=== PATIENT | female | born 1935 | race Caucasian/White ===

== ENCOUNTER 2016-09-10 23:46 | Emergency (ER) | payer MEDICARE, BC ==
--- NOTE | 2016-09-10 23:58 | Emergency Department Record ---
History of Present Illness - General Stated Complaint: FALL Time Seen by Provider: 09/10/16 23:52 Source: Family - History of Present Illness Initial Comments: Fell on her way to the bathroom from the [facility] facility [facility]. She has had trouble with her left hip prosthesis and is scheduled to get the screws removed. Also has a large skin tear on the back of her left hand. She typically uses a walker, but doesn't know how the fall happened. MD Complaint: Fall - Related Data Home Medications Medication Instructions Recorded Confirmed Last Taken Aspirin [Aspirin EC] 81 mg PO DAILY 06/16/15 09/11/16 09/10/16 Atorvastatin Calcium [Lipitor] 20 mg PO QHS 06/16/15 09/11/16 09/10/16 Carvedilol [Coreg] 3.125 mg PO BID 06/16/15 09/11/16 09/10/16 Fluticasone/Salmeterol 100/50 1 disk IH Q12H 06/16/15 09/11/16 09/10/16 [Advair 100/50] Furosemide [Lasix] 20 mg PO BID 06/16/15 09/11/16 09/10/16 Isosorbide Mononitrate [Imdur] 30 mg PO DAILY 06/16/15 09/11/16 09/10/16 Metoprolol Succinate [Toprol Xl] 25 mg PO DAILY 06/16/15 09/11/16 06/16/15 Tiotropium [place] [Spiriva] 1 cap IH DAILY 06/16/15 09/11/16 06/16/15 Acetaminophen [Tylenol 325Mg] 325 mg PO Q4H PRN 09/11/16 09/11/16 Unknown Albuterol Sulfate 0.083% [Neb] 3 ml NEB Q6H PRN 09/11/16 09/11/16 Unknown Alprazolam [Xanax] 0.25 mg PO BID 09/11/16 09/11/16 09/10/16 Alprazolam [Xanax] 0.25 mg PO Q8H PRN 09/11/16 09/11/16 Unknown Hydralazine HCl [Apresoline] 25 mg PO BID 09/11/16 09/11/16 09/10/16 Hypromellose [Systane Gel] 10 gm OP QHS 09/11/16 09/11/16 Unknown Losartan Potassium [Cozaar] 25 mg PO DAILY 09/11/16 09/11/16 09/10/16 Melatonin 3 mg PO QHS 09/11/16 09/11/16 09/10/16 Mirtazapine [Remeron] 15 mg PO QHS 09/11/16 09/11/16 Unknown Nitroglycerin [Nitrostat] 0.4 mg SL Q5MIN PRN MDD 3 09/11/16 09/11/16 Unknown Pantoprazole Sodium [Protonix] 40 mg PO BID 09/11/16 09/11/16 Unknown Potassium Chloride [Klor-Con] 20 meq PO BID 09/11/16 09/11/16 Unknown Propylene Glycol [Systane Balance] 10 ml OP BID 09/11/16 09/11/16 Unknown Sennosides/Docusate Sodium [Senna 1 each PO BID 09/11/16 09/11/16 09/10/16 Plus] Teriparatide [Forteo] 2.4 ml SQ DAILY 09/11/16 09/11/16 09/10/16 Tramadol HCl 50 mg PO BID PRN 09/11/16 09/11/16 Unknown Previous Rx's Medication Instructions Recorded Ferrous Sulfate [Feosol] 325 mg PO DAILY #30 tab 06/16/15 Sulfamethoxazole/Trimethoprim 1 each PO BID #5 tablet 09/11/16 [Bactrim Ds Tablet] Allergies Allergy/AdvReac Type Severity Reaction Status Date / Time amlodipine besylate Allergy HIVES Verified 06/16/15 10:16 [From [facility]] Penicillins Allergy HIVES Verified 06/16/15 10:16 Review of Systems Reviewed: No additional complaints except as noted below Constitutional: Reports: As per HPI. Denies: Chills, Fever, Malaise, Night sweats, Weakness, Weight change Eyes: Reports: As per HPI. Denies: Eye discharge, Eye pain, Photophobia, Vision change ENT: Reports: As per HPI. Denies: Congestion, Dental pain, Ear pain, Epistaxis , Hearing loss, Throat pain Respiratory: Reports: As per HPI. Denies: Cough, Dyspnea, Hemoptysis, Stridor, Wheezes Cardiovascular: Reports: As per HPI. Denies: Arrhythmia, Chest pain, Dyspnea on exertion, Edema, Murmurs, Orthopnea, Palpitations, Paroxysmal nocturnal dyspnea, Rheumatic Fever, Syncope Endocrine: Reports: As per HPI. Denies: Fatigue, Heat or cold intolerance, Polydipsia, Polyuria Gastrointestinal: Reports: As per HPI. Denies: Abdominal pain, Constipation, Diarrhea, Hematemesis, Hematochezia, Melena, Nausea, Vomiting Genitourinary: Reports: As per HPI. Denies: Abnormal menses, Discharge, Dyspareunia, Dysuria, Frequency, Hematuria, Incontinence, Retention, Urgency Musculoskeletal: Reports: As per HPI. Denies: Arthralgia, Back pain, Gout, Joint swelling, Myalgia, Neck pain Skin: Reports: As per HPI. Denies: Bruising, Change in color, Change in hair/ nails, Lesions, Pruritus, Rash Neurological: Reports: As per HPI. Denies: Abnormal gait, Confusion, Headache, Numbness, Paresthesias, Seizure, Tingling, Tremors, Vertigo, Weakness Psychiatric: Reports: As per HPI. Denies: Anxiety, Auditory hallucinations, Depression, Homicidal thoughts, Suicidal thoughts, Visual hallucinations Hematological/Lymphatic: Reports: As per HPI. Denies: Anemia, Blood Clots, Easy bleeding, Easy bruising, Swollen glands Past Medical History - SOCIAL HISTORY Smoking Status: Former smoker - RESPIRATORY Hx Respiratory Disorders: Yes Hx Bronchitis: Yes - CARDIOVASCULAR Hx Cardio Disorders: Yes Hx Abnormal EKG: Yes Hx Chest Pain: Yes Hx CHF: Yes Hx Heart Attack: Yes Hx Hypertension: Yes Hx Irregular Heartbeat: Yes Comment:: hyperlipidemia - NEURO Hx Neuro Disorders: Yes Hx Dementia: Yes Hx Neuropathy: Yes Hx TIA: Yes Comment:: RLS - GI Hx GI Disorders: No - Hx Genitourinary Disorders: No - ENDOCRINE Hx Endocrine Disorders: Yes Hx Diabetes: Yes Hx Thyroid Disease: Yes - MUSCULOSKELETAL Hx Musculoskeletal Disorders: Yes Comment:: muscle weakness - PSYCH Hx Psych Problems: No - HEMATOLOGY/ONCOLOGY Hx Hematology/Oncology Disorders: No Family Medical History Family Hx Comment (NOT TO BE USED IN PLACE OF ITEMS BELOW): unknown, pt has dementia Physical Exam - General General Appearance: Alert, Cooperative, Mild distress - Head Head exam: Normal inspection Head exam detail: Contusion (contusion to upper forehead) - Eye Eye exam: Normal appearance, PERRL Pupils: Normal accommodation - ENT ENT exam: Normal exam, Mucous membranes moist, Normal external ear exam, Normal orophraynx, TM's normal bilaterally Ear exam: Normal external inspection. negative: External canal tenderness Nasal Exam: Normal inspection. negative: Discharge, Sinus tenderness Mouth exam: Normal external inspection, Tongue normal Teeth exam: Normal inspection. negative: Dental caries Throat exam: Normal inspection. negative: Tonsillar erythema, Tonsillar exudate - Neck Neck exam: Normal inspection, Full ROM. negative: Lymphadenopathy, Meningismus , Tenderness - Respiratory Respiratory exam: Normal lung sounds bilaterally. negative: Chest wall tenderness, Respiratory distress - Cardiovascular Cardiovascular Exam: Regular rate, Normal rhythm, Normal heart sounds - GI/Abdominal GI/Abdominal exam: Soft, Normal bowel sounds. negative: Tenderness - Rectal Rectal exam: Deferred - exam: Deferred - Extremities Extremities exam: Normal inspection, Full ROM, Normal capillary refill, Tenderness (Left hip painful ROM but not entirely new per daughte)), Other ( left dorsal hand with large superficial skin tear over metacarpals ) - Back Back exam: Reports: Normal inspection, Full ROM. Denies: Muscle spasm, Rash noted, Tenderness - Neurological Neurological exam: Alert, Normal gait, Oriented X3, Reflexes normal - Psychiatric Psychiatric exam: Normal affect, Normal mood - Skin Skin exam: Dry, Intact, Normal color, Warm Course - Reevaluation(s) Reevaluation #1: Patient is up to the commode to urinate. Recheck of her neck show no bony tenderness on palpation posteriorly. 09/11/16 02:03 Medical Decision Making - Management Options MDM Management: No Additional Work-up Planned - Data Complexity MDM Data: Labs Ordered and/or Reviewed (UA: 1+ bacteria, 3-5 WBC, +N), X-Ray Ordered and/or Reviewed (Noncontrast Head and CSpine CT: No acute process detected. C spine has motion artifact, but no obvious fx seen. Per [facility].), EKG Ordered and/or Reviewed - Lab Data Result diagrams: 09/10/16 00:25 09/10/16 00:25 - EKG Data -: EKG Interpreted by Me EKG: No Acute Changes, Unchanged From Previous Disposition Disposition: Discharge Clinical Impression: Fall Qualifiers: Encounter type: initial encounter Qualified Code(s): W19.XXXA - Unspecified fall, initial encounter Contusion of head Qualifiers: Encounter type: initial encounter Contusion of head detail: unspecified part of head Qualified Code(s): S00.93XA - Contusion of unspecified part of head, initial encounter UTI (urinary tract infection) Qualifiers: Urinary tract infection type: acute cystitis Hematuria presence: without hematuria Qualified Code(s): N30.00 - Acute cystitis without hematuria Disposition: Home, Self-Care Condition: (1) Good Instructions: Fall Prevention for Older Adults (ED), Urinary Tract Infection in Women (ED) Additional Instructions: Take Bactrim as directed until gone. Ice to forehead contusion as needed. Tylenol or ibuprofen as directed as needed for pain. Continue present meds. Follow up with PCP in office for recheck of neck and head and hip contusion as needed. Prescriptions: Sulfamethoxazole/Trimethoprim [Bactrim Ds Tablet] 1 each PO BID #5 tablet
[2016-09-10] MEDS ORDERED: 0.9 % SODIUM CHLORIDE 1,000 ML BAG IV ONE (23:59)
[2016-09-11 00:33] LABS: BASO % 0.6 % (0-6); EOS % 3.9 % (0-6); GRAN % 42.4 % (47-80); HEMATOCRIT 32.4 % (35.0-47.0); HEMOGLOBIN 10.8 gm/dl (11.6-16.0); LYMPH % 43.4 % (16-45); MEAN CELL VOLUME 92.3 fl (81-97); MEAN CORPUSCULAR HGB CONC 33.3 g/dl (32-36); MEAN PLATELET VOLUME 9.5 fl (7.4-10.4); MONO % 9.7 % (0-9); PLATELET COUNT 201 K/uL (130-400); RED BLOOD COUNT 3.51 M/uL (3.80-5.40); RED CELL DISTRIBUTION WIDTH 13.2 % (11.5-14.5); WHITE BLOOD COUNT W/O DIFF 4.7 K/uL (4.2-12.2)
[2016-09-11 00:34] LABS: MEAN CORPUSCULAR HEMOGLOBIN 30.7 pg (27-33)
[2016-09-11 00:44] LABS: ALBUMIN 4.1 gm/dL (3.5-5.0); ANION GAP 6.9 (7-16); BILIRUBIN,TOTAL 0.43 mg/dL (0.2-1.3); CARBON DIOXIDE 29.1 mmol/L (22-30); CREATININE 1.3 mg/dL (0.52-1.04)
[2016-09-11 01:42] LABS: URINE APPEARANCE CLEAR; URINE BILIRUBIN NEGATIVE (NEGATIVE); URINE BLOOD NEGATIVE (NEGATIVE); URINE COLOR YELLOW; URINE GLUCOSE (UA) NEGATIVE (NEGATIVE); URINE KETONE NEGATIVE (NEGATIVE); URINE LEUKOCYTE ESTERASE NEGATIVE (NEGATIVE); URINE NITRITE POSITIVE (NEGATIVE); URINE PROTEIN NEGATIVE (NEGATIVE); URINE UROBILINOGEN 0.2 E.U./dL (0.20 - 1.00)
[2016-09-11 01:49] LABS: URINE BACTERIA 1+; URINE EPITHELIAL CELLS 0 - 2 (FEW); URINE RBC 0 - 2 (NONE SEEN)
[2016-09-11] MEDS ORDERED: TMP/SMZ 160MG/800MG TAB PO ONE (01:58)
== END 2016-09-11 02:24 | disposition home or self-care (01) ==
LOC: ER 23:46
DX: S00.83XA Contusion of other part of head, initial encounter (principal); S60.512A Abrasion of left hand, initial encounter; N30.00 Acute cystitis without hematuria; R22.1 Localized swelling, mass and lump, neck; I10 Essential (primary) hypertension; I25.2 Old myocardial infarction; E11.9 Type 2 diabetes mellitus without complications; Z87.891 Personal history of nicotine dependence; W19.XXXA Unspecified fall, initial encounter; Y92.121 Bathroom in nursing home as the place of occurrence of the external cause
CPT/HCPCS: 99284 ×2; 85025; 80076; 80048; 81001; 73130; 73502; 72125; 70450; 93005; 93010; J3490